=== PATIENT | female | born 1980 | race Caucasian/White ===

== ENCOUNTER 2017-03-21 15:26 | Emergency (ER) | payer BC ==
[~2017-03-21] VITALS: Ht 170.2 cm; Wt 101.2 kg
[2017-03-21 16:55] LABS: HEMATOCRIT 29.9 % (36.0-46.0); MCH 28.9 PG (29.0-34.0); MCHC 33.8 G/DL (30.0-36.0); MCV 85.4 FL (83-99); NRBC (%) 0.7 /100 WBC (0-0); RBC DIS.WIDTH-SD 43.3 % (39-53); WHITE BLOOD COUNT 21.4 K/uL (4.1-10.2)
[2017-03-21 17:03] LABS: CHLORIDE 104 mEq/L (99-109); POTASSIUM 3.9 mEq/L (3.7-5.4); SODIUM 141 mEq/L (136-147)
[2017-03-21 17:04] LABS: PROTHROMBIN TIME 10.3 (9.2-11.2)
[2017-03-21 17:05] LABS: GLUCOSE 88 mg/dL (70-99)
[2017-03-21 17:07] LABS: ANION GAP 11 MEQ/L (2-14)
[2017-03-21 17:09] LABS: GFR ESTIMATE (CALCULATED) > 59 mL/min/
[2017-03-21 17:10] LABS: UREA NITROGEN (BUN) 14 mg/dL (9-23)
[2017-03-21 17:53] LABS: HEMATOLOGY COMMENT 1 SN; IMM.PLATELET FRACTION 7.5 (1-7); MEAN PLAT.VOLUME 10.7 uM^3 (9.5-12.4); PLAT.SUFFICIENCY DECREASED; PLATELET COUNT 29 K/uL (156-360)
[2017-03-21 18:51] LABS: ADD MIUA? YES; BILIRUBIN NEGATIVE; BLOOD MODERATE; COLOR YELLOW ((YELLOW)); GLUCOSE (STRIP) NEGATIVE; KETONES 5; LEUKOCYTES NEGATIVE; NITRITE NEGATIVE; PROTEIN (STRIP) NEGATIVE; UROBILINOGEN 0.2 MG/DL (0.2-1.0)
[2017-03-21 18:54] LABS: BACTERIA RARE /HPF; EPITHELIAL CELLS 1+ /HPF; MUCUS TRACE /LPF; WHITE BLOOD CELLS 0-5 /HPF (0-5)
[2017-03-21 19:33] VITALS: BP 130/87
== END 2017-03-21 19:35 | disposition home or self-care (01) ==
LOC: EME 15:26
PROVIDERS: Nurse Practitioner Family
DX: R60.0 Localized edema (principal); D69.6 Thrombocytopenia, unspecified; D64.9 Anemia, unspecified; C56.9 Malignant neoplasm of unspecified ovary; R00.0 Tachycardia, unspecified; Z86.711 Personal history of pulmonary embolism
CPT/HCPCS: 71020; 80048; 81003; 85027; 85610; 93970; 99281; 99284